=== PATIENT | male | born 1990 | race Caucasian/White ===

== ENCOUNTER 2020-02-01 19:03 | Emergency (ER) | payer MEDICAID ==
[~2020-02-01] VITALS: Ht 182.9 cm; Wt 95.5 kg
[2020-02-01] MEDS ORDERED: ADACEL/BOOSTRIX VACCINE (DIPHTH/PERTUSS/ACELL/TETANUS)0.5ML SYR (90715) IM ONE (19:30)
[2020-02-01 19:44] LABS: HEMATOCRIT 55.9 % (42.0-52.0); MEAN CORPUSCULAR HEMOGLOBIN 31.1 pg (27.0-33.0); MEAN CORPUSCULAR HGB CONC 34.7 g/dl (32.0-36.5); MEAN CORPUSCULAR VOLUME 89.6 fl (80.0-96.0); PLATELET COUNT, AUTOMATED 386 10^3/uL (150-450); RED BLOOD COUNT 6.24 10^6/uL (4.30-6.10); WHITE BLOOD COUNT 16.6 10^3/uL (4.0-10.0)
[2020-02-01] MEDS ORDERED: ISOVUE-370 76% 100ML VIAL (Q9967) As Ordered ONE (19:46)
[2020-02-01 19:47] LABS: HEMOGLOBIN 19.4 g/dl (13.5-17.5)
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
[2020-02-01 20:18] LABS: ALBUMIN 4.2 GM/DL (3.2-5.2); BILIRUBIN,DIRECT 0.2 MG/DL (0.0-0.2); BILIRUBIN,TOTAL 0.5 MG/DL (0.2-1.0)
[2020-02-01] MEDS ORDERED: DERMABOND TOPICAL SKIN ADHESIVE TOP ONE (21:15)
[2020-02-01] MEDS ORDERED: KETOROLAC 30 MG/ML VIAL (J1885) IV ONE (21:15)
[2020-02-01 22:54] VITALS: BP 110/67
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
== END 2020-02-01 22:56 | disposition home or self-care (01) ==
LOC: EDBD 19:03 → M ED 19:03
DX: S01.01XA Laceration without foreign body of scalp, initial encounter (principal); S01.81XA Laceration without foreign body of other part of head, initial encounter; S20.20XA Contusion of thorax, unspecified, initial encounter; Y08.02XA Assault by strike by baseball bat, initial encounter; Y92.89 Other specified places as the place of occurrence of the external cause; Z88.0 Allergy status to penicillin
CPT/HCPCS: 12013; 70450; 71260; 72125; 73090; 74177; 80047; 80076; 85027; 86850; 86900; 86901; 90471; 90715; 96372; 99291; J1885; Q9967

== ENCOUNTER 2021-01-01 12:17 | Emergency (ER) | payer OTHER ==
[~2021-01-01] VITALS: Ht 182.9 cm; Wt 107.8 kg
--- OUTSIDE RECORDS SUMMARY | 2021-01-01 13:01 | CCD ---
Author Author [facility] Organization [facility] Address Unknown Phone Unavailable Care Team Providers Care Python Developer Name Role Phone Martha Freire Unavailable Unavailable NICO, DOROTHY PA Unavailable Unavailable NICO, DOROTYH PA Unavailable Unavailable NICO, DOROTHY PA Unavailable Unavailable NICO, DOROTHY PA Unavailable Unavailable NICO, DOROTHY PA Unavailable Unavailable NICO, DOROTHY PA Unavailable Unavailable NICO, DOROTHY PA Unavailable Unavailable NICO, DOROTHY PA Unavailable Unavailable NICO, DOROTHY PA Unavailable Unavailable NICO, DOROTHY PA Unavailable Unavailable NICO, DOROTHY PA Unavailable Unavailable NICO, DOROTHY PA Unavailable Unavailable NICO, DOROTHY PA Unavailable Unavailable NICO, DOROTHY PA Unavailable Unavailable NICO, DOROTHY PA Unavailable Unavailable NICO, DOROTHY PA Unavailable Unavailable NICO, DOROTHY PA Unavailable Unavailable NICO, DOROTHY PA Unavailable Unavailable NICO, DOROTHY PA Unavailable Unavailable NICO, DOROTHY PA Unavailable Unavailable NICO, DOROTHY PA Unavailable Unavailable NICO, DOROTHY PA Unavailable Unavailable NICO, DOROTHY PA Unavailable Unavailable NICO, DOROTHY PA Unavailable Unavailable NICO, DOROTHY PA Unavailable Unavailable NICO, DOROTHY PA Unavailable Unavailable NICO, DOROTHY PA Unavailable Unavailable NICO, DOROTHY PA Unavailable Unavailable NICO, DOROTHY PA Unavailable Unavailable NICO, DOROTHY PA Unavailable Unavailable NICO, DOROTHY PA Unavailable Unavailable NICO, DOROTHY PA Unavailable Unavailable NICO, DOROTHY PA Unavailable Unavailable NICO, DOROTHY PA Unavailable Unavailable NICO, DOROTHY PA Unavailable Unavailable NICO, DOROTHY PA Unavailable Unavailable NICO, DOROTHY PA Unavailable Unavailable NICO, DOROTHY PA Unavailable Unavailable Re-disclosure Warning The records that you are about to access may contain information from federally-assisted alcohol or drug abuse programs. If such information is present, then the following federally mandated warning applies: This information has been disclosed to you from records protected by federal confidentiality rules (42 CFR part 2). The federal rules prohibit you from making any further disclosure of this information unless further disclosure is expressly permitted by the written consent of the person to whom it pertains or as otherwise permitted by 42 CFR part 2. A general authorization for the release of medical or other information is NOT sufficient for this purpose. The Federal rules restrict any use of the information to criminally investigate or prosecute any alcohol or drug abuse patient.The records that you are about to access may contain highly sensitive health information, the redisclosure of which is protected by Article 27-F of the [facility] Public Health law. If you continue you may have access to information: Regarding HIV / AIDS; Provided by facilities licensed or operated by the [facility] Office of Mental Health; or Provided by the [facility] Office for People With Developmental Disabilities. If such information is present, then the following [facility] mandated warning applies: This information has been disclosed to you from confidential records which are protected by state law. State law prohibits you from making any further disclosure of this information without the specific written consent of the person to whom it pertains, or as otherwise permitted by law. Any unauthorized further disclosure in violation of state law may result in a fine or prison sentence or both. A general authorization for the release of medical or other information is NOT sufficient authorization for further disc losure. Allergies and Adverse Reactions Type Description Substance Reaction Status Data Source(s ) Allergy to substance Allergy to substance Penicillin antibiotic produ ct [facility] ([facility] [employer]) Family History Family Member Name Family Member Gender Family Member Status Date o f Status Description Data Source(s) Unknown Unknown Problem [facility] ([facility]) Encounters Encounter Providers Location Date Indications Data Source(s ) Unlisted evaluation and management service Performer: Rachel Flores ers 02/29/2020 04:39:00 PM EDT - 03/16/2020 01:13:00 PM EDT [facility] ([facility] [employer]) Outpatient 02/29/2020 05:30:00 AM EDT [facility] Unlisted evaluation and management service Performer: Rachel Flores ers 02/26/2020 03:47:00 PM EDT - 02/29/2020 04:38:00 PM EDT [facility] ([facility] [employer]) Unlisted evaluation and management service Performer: Rachel Flores ers 02/21/2020 11:29:00 PM EDT - 03/25/2020 12:38:00 AM EDT [facility] ([facility] [employer]) Unlisted evaluation and management service 05/2020 09:45:00 PM EDT [facility] ([facility] [employer] [facility]) Outpatient Attender: DOROTHY martinez 02/16/2020 04:40:00 PM EDT [facility] ([facility] Insurance Providers Payer name Policy type / Coverage type Policy ID Covered constitution party ID Covered constitution party's relationship to manriquez Policy Manriquez Plan Information MARIAH [id number] SP [id number] [place] [id number] S [id number] MEDICAID M [id number] MEDICAID [id number] SP [id number] SELF PAY ONLY [id number] SP [id number] SELF PAY UNAVAILABLE UNAVAILA BLE O UNAVAILABLE UNAVAILA BLE [place] 302/[id number] SP [id number] [place] [id number] [id number] Results ID Date Data Source [id number] 03/06/2020 04:00:00 AM EDT [facility] ([facility]) Name Value Range Interpretation Code Description Data Penny rce(s) Supporting Document(s) UREA NITROGEN (BUN) 24.0 mg/dL [facility] ([facility] [employer]) eGFR NON-AFR. GUYANESE 102.0 mL/min/1.73m2 [facility] ([facility] [employer]) Creatinine [Interpretation] in Urine 0.99 mg/dL [facility] ([facility]) Glucose [Mass/volume] in Urine collected for unspecified duratio n 95.0 mg/dL [facility] ([facility]) eGFR 118.0 mL/min/1.73m2 [facility] Potassium [Mass/volume] in Blood 5.0 mmol/L [facility]) Sodium [Moles/volume] in Serum, Plasma or Blood 143.0 mmol/L [facility]) BUN/CREATININE RATIO NOT APPLICABLE [facility] [place] ([facility]) PROTEIN, TOTAL 7.1 g/dL [facility]) Chloride [Moles/volume] in Serum, Plasma or Blood 104.0 mmol/L [facility]) Carbon dioxide [VFr/PPres] in Gas delivery system 28.0 mmol/L [facility]) Calcium [Moles/volume] in Urine collected for unspecified durati on 10.0 mg/dL [facility]) ALBUMIN/GLOBULIN RATIO 2.0 (calc) [facility]SV[facility] ([facility]) Microalbumin [Mass/time] in Urine collected for unspecified dura tion 4.7 g/dL [facility] Globulin [Mass/time] in 24 hour Urine 2.4 g/dL (calc) [facility]) ALT 34.0 U/L [facility] Alkaline phosphatase [Enzymatic activity/volume] in Se rum, Plasma or Blood 61.0 U/L [facility]) AST 18.0 U/L [facility] ) BILIRUBIN, TOTAL 0.3 mg/dL [facility]) RED BLOOD CELL COUNT 5.09 Million/uL [facility] SM[facility] ([facility]) Hemoglobin [Mass/volume] in Mixed venous blood by Oximetry 15.7 g/dL [facility]) Hematocrit [Pure volume fraction] of Blood by Automated count 45.5 % [facility] ([facility]) Structure of plantar digital artery (body structure) 10.0 Thousand/uL [facility] ([facility]) RDW 12.5 % [facility] ([facility] ) MCH 30.8 pg [facility] ([facility] ) MCHC 34.5 g/dL [facility] ([facility]) MCV 89.4 fL [facility] ([facility]) PLATELET COUNT 341.0 Thousand/uL [facility] T ([facility]) MPV 9.6 fL [facility] ([facility]) ABSOLUTE NEUTROPHILS 6240.0 cells/uL [facility] ([facility]) ABSOLUTE PROMYELOCYTES DNR [facility] ([facility]) ABSOLUTE MYELOCYTES DNR [facility] ( [facility]) ABSOLUTE METAMYELOCYTES DNR NETSMA RT ([facility]) ABSOLUTE BAND NEUTROPHILS DNR [facility] M[facility] ([facility]) ABSOLUTE BASOPHILS 40.0 cells/uL [facility] ([facility]) ABSOLUTE MONOCYTES 860.0 cells/uL [facility] ([facility]) ABSOLUTE EOSINOPHILS 190.0 cells/uL [facility] ([facility]) ABSOLUTE LYMPHOCYTES 2670.0 cells/uL [facility] ([facility]) ABSOLUTE NUCLEATED RBC DNR [facility] ([facility]) BAND NEUTROPHILS DNR [facility] ([facility]) Neutrophils [#] in Body fluid by Manual count 62.4 % [facility] ([facility]) ABSOLUTE BLASTS DNR [facility]) Myelocytes [#] in Body fluid by Manual count DNR [facility] ([facility]) Lymphocytes [#] in Body fluid by Manual count 26.7 % [facility] ([facility]) Metamyelocytes [#] in Body fluid by Manual count DNR [facility] ([facility]) Promyelocytes [#] in Body fluid by Manual count DNR [facility] ([facility]) Monocytes [#/volume] in Cord blood 8.6 % [facility] ([facility]) Eosinophils [#] in Body fluid by Manual count 1.9 % [facility] ([facility]) REACTIVE LYMPHOCYTES DNR [facility] ([facility]) NUCLEATED RBC DNR [facility] ([facility]) Basophils [#] in Body fluid by Manual count 0.4 % [facility] ([facility]) Blasts [#] in Body fluid by Manual count DNR [facility] ([facility]) COMMENT(S) DNR [facility]) RPR (DX) W/REFL TITER AND CONFIRMATORY TESTING NON-REACTIVE [facility] ([facility]) ID Date Data Source [id number] 03/06/2020 04:00:00 AM EDT [facility] ([facility]) Name Value Range Interpretation Code Description Data Penny rce(s) Supporting Document(s) Urea nitrogen [Mass/volume] in Serum or Plasma 24.0 mg/dL [facility] ([facility]) Glucose [Mass/volume] in Serum or Plasma 95.0 mg/dL [facility] ([facility]) Glomerular filtration rate/1.73 sq M.pre dicted [Volume Rate/Area] in Serum, Plasma or Blood by Creatinine-based formula (MDRD) 102.0 mL/min/1.73m2 [facility] ([facility]) Creatinine [Mass/volume] in Serum or Plasma 0.99 mg/dL [facility] ([facility]) Potassium [Moles/volume] in Serum or Plasma 5.0 mmol/L [facility] ([facility]) Sodium [Moles/volume] in Serum or Plasma 143.0 mmol/L [facility] ([facility]) Urea nitrogen/Creatinine [Mass Ratio] in Serum or Plasma NOT APPLICAB LE [facility] ([facility]) Glomerular filtration rate/1.73 sq M pre dicted among blacks [Volume Rate/Area] in Serum or Plasma by Creatinine-based formula (MDRD) 118.0 mL/min/1.73m2 [facility] ([facility]) Chloride [Moles/volume] in Serum or Plasma 104.0 mmol/L [facility] ([facility]) Calcium [Mass/volume] in Serum or Plasma 10.0 mg/dL [facility] ([facility]) Carbon dioxide, total [Moles/volume] in Serum or Plasma 28.0 mmol/L [facility] ([facility]) Albumin/Globulin [Mass Ratio] in Serum or Plasma 2.0 (calc) [facility] ([facility]) Protein [Mass/volume] in Serum or Plasma 7.1 g/dL [facility] ([facility]) Globulin [Mass/volume] in Serum by calculation 2.4 g/dL (calc) [facility] ([facility]) Albumin [Mass/volume] in Serum or Plasma 4.7 g/dL [facility] ([facility]) Aspartate aminotransferase [Enzymatic activity/volume] in Serum or Plasma 18.0 U/L [facility] ([facility]) Alanine aminotransferase [Enzymatic activity/volume] i n Serum or Plasma 34.0 U/L [facility] ([facility]) Alkaline phosphatase [Enzymatic activity/volume] in Serum or Tala sma 61.0 U/L [facility] ([facility]) Bilirubin.total [Mass/volume] in Serum or Plasma 0.3 mg/dL [facility] ([facility]) Erythrocytes [#/volume] in Blood by Automated count 5.09 Million/uL [facility] ([facility]) Leukocytes [#/volume] in Blood by Automated count 10.0 Thousand/uL [facility] ([facility]) Hemoglobin [Mass/volume] in Blood 15.7 g/dL [facility] ([facility]) Erythrocyte mean corpuscular volume [Entitic volume] by Auto mated count 89.4 fL [facility] ([facility]) Erythrocyte mean corpuscular hemoglobin [Entitic mass] by Automated count 30.8 pg [facility] ([facility]) Hematocrit [Volume Fraction] of Blood by Automated count 45.5 % [facility] ([facility]) Erythrocyte mean corpuscular hemoglobin concentration [Mass/volume] by Automated count 34.5 g/dL [facility] ([facility]) Platelets [#/volume] in Blood by Automated count 341.0 Thousand/uL [facility] ([facility]) Neutrophils [#/volume] in Blood by Automated count 6240.0 cells/uL [facility] ([facility]) Erythrocyte distribution width [Ratio] by Automated count 12.5 % [facility] ([facility]) Platelet mean volume [Entitic volume] in Blood by Briceker 9.6 fL [facility] ([facility]) Myelocytes [#/volume] in Blood DNR [facility] ([facility]) Promyelocytes [#/volume] in Blood DNR [facility] ([facility]) Band form neutrophils [#/volume] in Blood DNR [facility] ([facility]) Metamyelocytes [#/volume] in Blood DNR [facility] ([facility]) Lymphocytes [#/volume] in Blood by Automated count 2670.0 cells/uL [facility] ([facility]) Monocytes [#/volume] in Blood by Automated count 860.0 cells/uL [facility] ([facility]) Eosinophils [#/volume] in Blood by Automated count 190.0 cells/uL [facility] ([facility]) Neutrophils/100 leukocytes in Blood by Automated count 62.4 % [facility] ([facility]) Blasts [#/volume] in Blood DNR [facility] ([facility]) Nucleated erythrocytes [#/volume] in Blood DNR [facility] ([facility]) Basophils [#/volume] in Blood by Automated count 40.0 cells/uL [facility] ([facility]) Metamyelocytes/100 leukocytes in Blood by Manual count DNR [facility] ([facility]) Myelocytes/100 leukocytes in Blood by Manual count DNR [facility] ([facility]) Band form neutrophils/100 leukocytes in Blood by Manual count DNR [facility] ([facility]) Promyelocytes/100 leukocytes in Blood by Manual count DNR [facility] ([facility]) Eosinophils/100 leukocytes in Blood by Automated count 1.9 % [facility] ([facility]) Variant lymphocytes/100 leukocytes in Blood DNR [facility] ([facility]) Lymphocytes/100 leukocytes in Blood by Automated count 26.7 % [facility] ([facility]) Monocytes/100 leukocytes in Blood by Automated count 8.6 % [facility] ([facility]) Blasts/100 leukocytes in Blood by Manual count DNR [facility] ([facility]) Service comment DNR [facility]) Basophils/100 leukocytes in Blood by Automated count 0.4 % [facility] ([facility]) Nucleated erythrocytes/100 leukocytes [Ratio] in Blood DNR [facility] ([facility]) Reagin Ab [Presence] in Serum by RPR NON-REACTIVE [facility] ([facility]) ID Date Data Source [id number] 03/08/2020 10:18:00 AM EDT [facility] Received: 03/08/2020 at 02:27:00 QPT : [facility] [address], [address] [place] [address], [phone], Jj Verma MD Received: 03/08/2020 at 02:27:00 QPT : [facility] [address], [address] [place] [address], [phone], Jj Verma MD Received: 03/08/2020 at 02:27:00 QPT : [facility] [address], [address] [place] [address], [phone], Jj Verma MD Name Value Range Interpretation Code Description Data Penny rce(s) Supporting Document(s) Glucose [Mass/volume] in Serum or Plasma 95 mg/dL 65-99 Normal (applies to non- numeric results) [facility] Fasting reference interval Urea nitrogen [Mass/volume] in Serum or Plasma 24 mg/dL 7 -25 Normal (applies to non-numeric results) [facility] Creatinine [Mass/volume] in Serum or Plasma 0.99 mg/dL 0.60 -1.35 Normal (applies to non-numeric results) [facility] Glomerular filtration rate/1.73 sq M.pre dicted [Volume Rate/Area] in Serum, Plasma or Blood by Creatinine-based formula (MDRD) 102 mL/min/1.73m2 > OR = 60 Normal (applies to non-numeric results) [facility] Glomerular filtration rate/1.73 sq M pre dicted among blacks [Volume Rate/Area] in Serum or Plasma by Creatinine-based formula (MDRD) 118 mL/min/1.73m2 > OR = 60 Normal (applies to non-numeric results) [facility] Urea nitrogen/Creatinine [Mass Ratio] in Serum or Plasma NOT APPLICABLE (calc) 6-22 [facility] Sodium [Moles/volume] in Serum or Plasma 143 mmol/L 135-146 Normal (applies to non-numeric results) [facility] Potassium [Moles/volume] in Serum or Plasma 5.0 mmol/L 3.5- 5.3 Normal (applies to non-numeric results) [facility] Chloride [Moles/volume] in Serum or Plasma 104 mmol/L 98-11 0 Normal (applies to non-numeric results) [facility] Carbon dioxide, total [Moles/volume] in Serum or Plasma 28 mmol/ L 20-32 Normal (applies to non-numeric results) [facility] Calcium [Mass/volume] in Serum or Plasma 10.0 mg/dL 8.6-10. 3 Normal (applies to non-numeric results) [facility] Protein [Mass/volume] in Serum or Plasma 7.1 g/dL 6.1-8.1 Normal (applies to non-numeric results) [facility] Albumin [Mass/volume] in Serum or Plasma 4.7 g/dL 3.6-5.1 Normal (applies to non-numeric results) [facility] Globulin [Mass/volume] in Serum by calculation 2.4 g/dL (calc) 1 .9-3.7 Normal (applies to non-numeric results) [facility] Albumin/Globulin [Mass Ratio] in Serum or Plasma 2.0 (calc) 1.0-2.5 Normal (applies to non-numeric results) [facility] Bilirubin.total [Mass/volume] in Serum or Plasma 0.3 mg/dL 0.2-1.2 Normal (applies to non-numeric results) [facility] Alkaline phosphatase [Enzymatic activity/volume] in Serum or Plasma 61 U/L 36-130 Normal (applies to non-numeric results) [facility] Aspartate aminotransferase [Enzymatic activity/volume] in Serum or Plasma 18 U/L 10-40 Normal (applies to non-numeric results) [facility] Alanine aminotransferase [Enzymatic activity/volume] in Seru m or Plasma 34 U/L 9-46 Normal (applies to non-numeric results) [facility] ID Date Data Source [id number] 03/08/2020 10:18:00 AM EDT [facility] Received: 03/08/2020 at 02:27:00 QPT [facility], [address] [place] [address], [phone], Jj Verma MD Received: 03/08/2020 at 02:27:00 QPT [facility], [address] [place] [address], [phone], Jj Verma MD Received: 03/08/2020 at 02:27:00 QPT : [facility], [address] [place] [address], [phone], Jj Verma MD Name Value Range Interpretation Code Description Data Penny rce(s) Supporting Document(s) Leukocytes [#/volume] in Blood by Automated count 10.0 Thousand/ uL 3.8-10.8 Normal (applies to non-numeric results) [facility] Erythrocytes [#/volume] in Blood by Automated count 5.09 Million /uL 4.20-5.80 Normal (applies to non-numeric results) [facility] Hemoglobin [Mass/volume] in Blood 15.7 g/dL 13.2-17.1 Normal (applies to non- numeric results) [facility] Hematocrit [Volume Fraction] of Blood by Automated count 45.5 % 38.5-50.0 Normal (applies to non-numeric results) [facility] Erythrocyte mean corpuscular volume [Entitic volume] by Auto mated count 89.4 fL 80.0-100.0 Normal (applies to non-numeric results) [facility] Erythrocyte mean corpuscular hemoglobin [Entitic mass] by Automated count 30.8 pg 27.0-33.0 Normal (applies to non-numeric results) [facility] Erythrocyte mean corpuscular hemoglobin concentration [Mass/volume] by Automated count 34.5 g/dL 32.0-36.0 Normal (applies to non-numeric results) [facility] Erythrocyte distribution width [Ratio] by Automated count 12.5 % 11.0-15.0 Normal (applies to non-numeric results) [facility] Platelets [#/volume] in Blood by Automated count 341 Thousand/uL 140-400 Normal (applies to non-numeric results) [facility] Platelet mean volume [Entitic volume] in Blood by Kel-Lukas 9.6 fL 7.5-12.5 Normal (applies to non-numeric results) [facility] Neutrophils [#/volume] in Blood by Automated count 6240 cells/uL [id number] Normal (applies to non-numeric results) [facility] Lymphocytes [#/volume] in Blood by Automated count 2670 cells/uL 850-3900 Normal (applies to non-numeric results) [facility] Monocytes [#/volume] in Blood by Automated count 860 cells/uL 200-950 Normal (applies to non-numeric results) [facility] Eosinophils [#/volume] in Blood by Automated count 190 cells/uL 15-500 Normal (applies to non-numeric results) [facility] Basophils [#/volume] in Blood by Automated count 40 cells/uL 0-200 Normal (applies to non-numeric results) [facility] Neutrophils/100 leukocytes in Blood by Automated count 62.4 % 38-80 Normal (applies to non-numeric results) [facility] Lymphocytes/100 leukocytes in Blood by Automated count 26.7 % 15-49 Normal (applies to non-numeric results) [facility] Monocytes/100 leukocytes in Blood by Automated count 8.6 % 0-13 Normal (applies to non-numeric results) [facility] Eosinophils/100 leukocytes in Blood by Automated count 1.9 % 0-8 Normal (applies to non-numeric results) [facility] Basophils/100 leukocytes in Blood by Automated count 0.4 % 0-2 Normal (applies to non-numeric results) [facility] ID Date Data Source [id number] 03/08/2020 10:18:00 AM EDT [facility] Received: 03/08/2020 at 02:27:00 QPT : [facility], [address], [address] [place], [phone], Jj Verma MD Received: 03/08/2020 at 02:27:00 QPT : [facility], [address], [address] [place], [phone], Jj Verma MD Received: 03/08/2020 at 02:27:00 QPT : [facility], [address], [address] [place], [phone], Jj Verma MD Name Value Range Interpretation Code Description Data Penny rce(s) Supporting Document(s) Reagin Ab [Presence] in Serum by RPR NON-REACTIVE NON-REACTIV E Normal (applies to non-numeric results) [facility] ID Date Data Source [id number] 02/21/2020 04:00:00 AM EDT [facility] ([facility]) Name Value Range Interpretation Code Description Data Penny rce(s) Supporting Document(s) Glucose [Mass/volume] in Serum or Plasma 93.0 mg/dL [facility] Creatinine [Mass/volume] in Serum or Plasma 0.97 mg/dL [facility] ([facility]) Glomerular filtration rate/1.73 sq M pre dicted among blacks [Volume Rate/Area] in Serum or Plasma by Creatinine-based formula (MDRD) 121.0 mL/min/1.73m2 [facility] ([facility] [employer] [facility]) Urea nitrogen [Mass/volume] in Serum or Plasma 14.0 mg/dL [facility] ([facility] [employer] [facility]) Glomerular filtration rate/1.73 sq M.pre dicted [Volume Rate/Area] in Serum, Plasma or Blood by Creatinine-based formula (MDRD) 104.0 mL/min/1.73m2 [facility] ([facility] [employer] [facility]) Sodium [Moles/volume] in Serum or Plasma 140.0 mmol/L [facility] ([facility] [employer] [facility]) Urea nitrogen/Creatinine [Mass Ratio] in Serum or Plasma NOT APPLICAB LE [facility] ([facility]) Potassium [Moles/volume] in Serum or Plasma 4.2 mmol/L [facility] ([facility]) Protein [Mass/volume] in Serum or Plasma 6.9 g/dL [facility] ([facility]) Carbon dioxide, total [Moles/volume] in Serum or Plasma 20.0 mmol/L [facility] ([facility]) Calcium [Mass/volume] in Serum or Plasma 9.1 mg/dL [facility] ([facility]) Chloride [Moles/volume] in Serum or Plasma 107.0 mmol/L [facility] ([facility]) Bilirubin.total [Mass/volume] in Serum or Plasma 0.4 mg/dL [facility] ([facility]) Albumin [Mass/volume] in Serum or Plasma 4.5 g/dL [facility] ([facility]) Globulin [Mass/volume] in Serum by calculation 2.4 g/dL (calc) [facility] ([facility]) Albumin/Globulin [Mass Ratio] in Serum or Plasma 1.9 (calc) NETSMART ([facility]) Aspartate aminotransferase [Enzymatic activity/volume] in Serum or Plasma 15.0 U/L NETSMART ([facility]) Alkaline phosphatase [Enzymatic activity/volume] in Serum or Tala sma 72.0 U/L NETSMART ([facility]) Alanine aminotransferase [Enzymatic activity/volume] i n Serum or Plasma 21.0 U/L NETSMART ([facility]) Color of Urine YELLOW NETSMART ([facility]) Appearance of Urine CLEAR NETSMART ( [facility]) Specific gravity of Urine by Test strip 1.026 NETSMART ([facility]) pH of Urine by Test strip 7.0 NETS MART ([facility]) Ketones [Presence] in Urine by Test strip NEGATIVE NETSMART ([facility]) Hemoglobin [Presence] in Urine by Test strip NEGATIVE NETSMART ([facility]) Glucose [Presence] in Urine by Test strip NEGATIVE NETSMART ([facility]) Bilirubin.total [Presence] in Urine by Test strip NEGATIVE NETSMART ([facility]) Protein [Presence] in Urine by Test strip NEGATIVE NETSMART ([facility]) Nitrite [Presence] in Urine by Test strip NEGATIVE NETSMART ([facility]) Leukocyte esterase [Presence] in Urine by Test strip NEGATIVE NETSMART ([facility]) Leukocytes [#/area] in Urine sediment by Microscopy high power field 0-5 NETSMART ([facility]) Transitional cells [#/area] in Urine sediment by Micro scopy high power field DNR NETSMART ([facility]) Epithelial cells.squamous [#/area] in Ur ine sediment by Microscopy high power field NONE SEEN NETSMART ([facility]) Epithelial cells.renal [#/area] in Urine sediment by Microscopy high power field DNR NETSMART ([facility]) Erythrocytes [#/area] in Urine sediment by Microscopy high power fi eld 0-2 NETSMART ([facility]) Urate crystals [#/area] in Urine sediment by Microscopy high pow er field DNR NETSMART ([facility]) Bacteria [#/area] in Urine sediment by Microscopy high power fie ld NONE SEEN NETSMART ([facility]) Triple phosphate crystals [#/area] in Ur ine sediment by Microscopy high power field DNR NETSMART ([facility]) Calcium oxalate crystals [#/area] in Uri ne sediment by Microscopy high power field DNR NETSMART ([facility]) Amorphous sediment [Presence] in Urine sediment by Light microscopy D NR NETSMART ([facility]) Hyaline casts [#/area] in Urine sediment by Microscopy low power field NONE SEEN NETSMART ([facility]) Granular casts [#/area] in Urine sediment by Microscopy low power f ield DNR NETSMART ([facility]) Crystals [#/area] in Urine sediment by Microscopy high power field DN R NETSMART ([facility]) Service comment DNR [facility]SMART ([facility]) Yeast [#/area] in Urine sediment by Microscopy high power field DNR NETSMART ([facility]) Casts [#/area] in Urine sediment by Microscopy low power field DNR NETSMART ([facility]) Hemoglobin [Mass/volume] in Blood 15.8 g/dL NETSMART ([facility]) Hematocrit [Volume Fraction] of Blood by Automated count 45.0 % NETSMART ([facility]) Leukocytes [#/volume] in Blood by Automated count 8.8 Thousand/uL NETSMART ([facility]) Erythrocytes [#/volume] in Blood by Automated count 5.0 Million/uL NETSMART ([facility]) Erythrocyte distribution width [Ratio] by Automated count 13.0 % NETSMART ([facility]) Erythrocyte mean corpuscular hemoglobin [Entitic mass] by Automated count 31.6 pg NETSMART ([facility]) Erythrocyte mean corpuscular volume [Entitic volume] by Auto mated count 90.0 fL NETSMART ([facility]) Erythrocyte mean corpuscular hemoglobin concentration [Mass/volume] by Automated count 35.1 g/dL NETSMART ([facility]) Neutrophils [#/volume] in Blood by Automated count 5808.0 cells/uL NETSMART ([facility]) Platelet mean volume [Entitic volume] in Blood by Kel-Lukas 9.4 fL NETSMART ([facility]) Platelets [#/volume] in Blood by Automated count 339.0 Thousand/uL NETSMART ([facility]) Promyelocytes [#/volume] in Blood DNR NETSMART ([facility]) Myelocytes [#/volume] in Blood DNR NETSMART ([facility]) Metamyelocytes [#/volume] in Blood DNR NETSMART ([facility]) Band form neutrophils [#/volume] in Blood DNR NETSMART ([facility]) Lymphocytes [#/volume] in Blood by Automated count 2042.0 cells/uL NETSMART ([facility]) Monocytes [#/volume] in Blood by Automated count 678.0 cells/uL NETSMART ([facility]) Basophils [#/volume] in Blood by Automated count 26.0 cells/uL NETSMART ([facility]) Eosinophils [#/volume] in Blood by Automated count 246.0 cells/uL NETSMART ([facility]) Band form neutrophils/100 leukocytes in Blood by Manual count DNR NETSMART ([facility]) Neutrophils/100 leukocytes in Blood by Automated count 66.0 % NETSMART ([facility]) Blasts [#/volume] in Blood DNR NET SMART ([facility]) Nucleated erythrocytes [#/volume] in Blood DNR NETSMART ([facility]) Lymphocytes/100 leukocytes in Blood by Automated count 23.2 % NETSMART ([facility]) Myelocytes/100 leukocytes in Blood by Manual count DNR NETSMART ([facility]) Promyelocytes/100 leukocytes in Blood by Manual count DNR NETSMART ([facility]) Metamyelocytes/100 leukocytes in Blood by Manual count DNR NETSMART ([facility]) Eosinophils/100 leukocytes in Blood by Automated count 2.8 % NETSMART ([facility]) Variant lymphocytes/100 leukocytes in Blood DNR NETSMART ([facility]) Basophils/100 leukocytes in Blood by Automated count 0.3 % NETSMART ([facility]) Monocytes/100 leukocytes in Blood by Automated count 7.7 % NETSMART ([facility] [facility]) Service comment DNR NETSMART ([facility]) Nucleated erythrocytes/100 leukocytes [Ratio] in Blood DNR NETSMART ([facility]) Blasts/100 leukocytes in Blood by Manual count DNR NETSMART ([facility]) Hepatitis C virus Ab Signal/Cutoff in Serum or Plasma by Immunoassay 0.03 NETSMART ([facility]) Hepatitis C virus Ab [Presence] in Serum or Plasma by Immuno assay NON-REACTIVE NETSMART ([facility]) Reagin Ab [Presence] in Serum by RPR NETSMART ([facility]) ID Date Data Source [id number] 02/21/2020 04:00:00 AM EDT NETSMART ([employer]) Name Value Range Interpretation Code Description Data Penny rce(s) Supporting Document(s) Glucose [Mass/volume] in Urine collected for unspecified duratio n 93.0 mg/dL NETSMART ([employer]) UREA NITROGEN (BUN) 14.0 mg/dL NETSMART ([facility]) eGFR NON-AFR. GUYANESE 104.0 mL/min/1.73m2 NETSMART ([employer]) Creatinine [Interpretation] in Urine 0.97 mg/dL NETSMART ([facility]) eGFR 121.0 mL/min/1.73m2 NETSMART ([facility]) BUN/CREATININE RATIO NOT APPLICABLE NETS MART ([employer]) Sodium [Moles/volume] in Serum, Plasma or Blood 140.0 mmol/L NETSMART ([facility]) Chloride [Moles/volume] in Serum, Plasma or Blood 107.0 mmol/L NETSMART ([facility]) Carbon dioxide [VFr/PPres] in Gas delivery system 20.0 mmol/L NETSMART ([facility]) Potassium [Mass/volume] in Blood 4.2 mmol/L NETSMART ([facility]) PROTEIN, TOTAL 6.9 g/dL NETSMART ([facility]) Calcium [Moles/volume] in Urine collected for unspecified durati on 9.1 mg/dL NETSMART ([facility]) Microalbumin [Mass/time] in Urine collected for unspecified dura tion 4.5 g/dL NETSMART ([facility]) ALBUMIN/GLOBULIN RATIO 1.9 (calc) NETSMA RT ([facility]) Globulin [Mass/time] in 24 hour Urine 2.4 g/dL (calc) NETSMART ([facility]) AST 15.0 U/L [facility]) Alkaline phosphatase [Enzymatic activity/volume] in Se rum, Plasma or Blood 72.0 U/L NETSMART ([facility]) BILIRUBIN, TOTAL 0.4 mg/dL [facility]SMART ([facility]) ALT 21.0 U/L [facility]SMART ([facility]) Color of Peritoneal dialysis fluid YELLOW NETSMART ([facility]) Specific gravity of Pericardial fluid by Refractometry 1.026 NETSMART ([facility]) Appearance of Abdomen CLEAR NETSMART ([facility]) Bilirubin [Presence] in Peritoneal fluid NEGATIVE NETSMART ([facility]) pH of Lower respiratory specimen 7.0 NETSMART ([facility]) Glucose [Mass/volume] in Urine collected for unspecified duration N EGATIVE NETSMART ([facility]) Ketones [Presence] in Blood by Tablet NEGATIVE NETSMART ([facility]) Protein [Mass/volume] in Lower respiratory specimen NEGATIVE NETSMART ([facility]) Nitrite [Presence] in Urine by Test strip NEGATIVE NETSMART ([facility]) OCCULT BLOOD NEGATIVE [facility]) WBC 0-5 [facility]SMART ([facility] Leukocyte esterase [Presence] in Body fluid by Automated test st rip NEGATIVE NETSMART ([facility]) RBC 0-2 NETSMART ([facility] ) SQUAMOUS EPITHELIAL CELLS NONE SEEN NETS MART ([facility]) TRANSITIONAL EPITHELIAL CELLS DNR NETSMART ([facility]) Bacteria [Presence] in Prostatic fluid by Light microscopy NONE SEEN NETSMART ([facility]) RENAL EPITHELIAL CELLS DNR NETSMAR T ([facility]) Calcium oxalate crystals [Presence] in Urine sediment by Light m icroscopy DNR NETSMART ([facility]) Amorphous sediment [Presence] in Urine sediment by Light microscopy D NR NETSMART ([facility]) Triple phosphate crystals [Presence] in Urine sediment by Li ght microscopy DNR NETSMART ([facility]) URIC ACID CRYSTALS DNR NETSMART ([facility]) Crystals [#/area] in Body fluid by Light microscopy DNR NETSMART ([facility]) HYALINE CAST NONE SEEN NETSMART ([facility]) GRANULAR CAST DNR NETSMART ([facility]) COMMENTS DNR [facility]SMART ([facility] ) Casts [#/area] in Urine sediment by Automated count DNR NETSMART ([facility]) Yeast [#/area] in Urine by Automated count DNR NETSMART ([facility]) Structure of plantar digital artery (body structure) 8.8 Thousand/uL NETSMART ([facility]) Nurse Note DNR NETSMART ([facility]) Hemoglobin [Mass/volume] in Mixed venous blood by Oximetry 15.8 g/dL NETSMART ([facility]) RED BLOOD CELL COUNT 5.0 Million/uL NETS MART ([facility]) MCV 90.0 fL [facility]SMART ([facility] Hematocrit [Pure volume fraction] of Blood by Automated count 45.0 % NETSMART ([facility]) MCH 31.6 pg [facility]SMART ([facility] MCHC 35.1 g/dL [facility] RDW 13.0 % [facility] PLATELET COUNT 339.0 Thousand/uL NETSMAR T ([facility]) MPV 9.4 fL [facility]SMART ([facility] ) ABSOLUTE NEUTROPHILS 5808.0 cells/uL NET SMART ([facility]) ABSOLUTE BAND NEUTROPHILS DNR NETS MART ([facility]) ABSOLUTE LYMPHOCYTES 2042.0 cells/uL NET SMART ([facility]) ABSOLUTE MYELOCYTES DNR NETSMART ( [facility]) ABSOLUTE PROMYELOCYTES [facility] ABSOLUTE METAMYELOCYTES DNR NETSMA RT ([facility]) ABSOLUTE BLASTS DNR NETSMART ([facility]) ABSOLUTE EOSINOPHILS 246.0 cells/uL NETS MART ([facility]) ABSOLUTE MONOCYTES 678.0 cells/uL NETSMA RT ([facility]) ABSOLUTE BASOPHILS 26.0 cells/uL NETSMAR T ([facility]) BAND NEUTROPHILS DNR [facility]) Neutrophils [#] in Body fluid by Manual count 66.0 % NETSMART ([facility]) ABSOLUTE NUCLEATED RBC DNR NETSMAR T ([facility]) Myelocytes [#] in Body fluid by Manual count DNR NETSMART ([facility]) Promyelocytes [#] in Body fluid by Manual count DNR NETSMART ([facility]) Lymphocytes [#] in Body fluid by Manual count 23.2 % NETSMART ([facility]) Metamyelocytes [#] in Body fluid by Manual count DNR NETSMART ([facility]) Basophils [#] in Body fluid by Manual count 0.3 % NETSMART ([facility]) REACTIVE LYMPHOCYTES DNR NETSMART ([facility]) Eosinophils [#] in Body fluid by Manual count 2.8 % NETSMART ([facility]) Monocytes [#/volume] in Cord blood 7.7 % NETSMART ([facility]) NUCLEATED RBC DNR NETSMART ([facility]) COMMENT(S) DNR [facility] ([facility]) Blasts [#] in Body fluid by Manual count DNR NETSMART ([facility]) SIGNAL TO CUT-OFF 0.03 [facility]) HEPATITIS C ANTIBODY NON-REACTIVE NETSMA RT ([facility]) RPR (DX) W/REFL TITER AND CONFIRMATORY TESTING NON-REACTIVE NETSMART ([facility]) ID Date Data Source [id number] 02/23/2020 09:04:00 AM EDT [facility] Received: 02/23/2020 at 02:34:00 QPT [facility], [address], [address] [place] [address], [phone], Jj Verma MD Received: 02/23/2020 at 02:34:00 QPT : [facility] [address], [address] [place] [address], [phone], Jj Verma MD Received: 02/23/2020 at 02:34:00 QPT : [facility], [address], [address] [place] [address], [phone], Jj Verma MD Received: 02/23/2020 at 02:34:00 QPT : [facility], [address], [address] [place], [address], Jj Verma MD Received: 02/23/2020 at 02:34:00 QPT : [facility], [address], [address] [place], [phone], Jj Verma MD Name Value Range Interpretation Code Description Data Penny rce(s) Supporting Document(s) Glucose [Mass/volume] in Serum or Plasma 93 mg/dL 65-99 Normal (applies to non- numeric results) [facility] Fasting reference interval Urea nitrogen [Mass/volume] in Serum or Plasma 14 mg/dL 7 -25 Normal (applies to non-numeric results) [facility] Creatinine [Mass/volume] in Serum or Plasma 0.97 mg/dL 0.60 -1.35 Normal (applies to non-numeric results) [facility] Glomerular filtration rate/1.73 sq M.pre dicted [Volume Rate/Area] in Serum, Plasma or Blood by Creatinine-based formula (MDRD) 104 mL/min/1.73m2 > OR = 60 Normal (applies to non-numeric results) [facility] Glomerular filtration rate/1.73 sq M pre dicted among blacks [Volume Rate/Area] in Serum or Plasma by Creatinine-based formula (MDRD) 121 mL/min/1.73m2 > OR = 60 Normal (applies to non-numeric results) [facility] Urea nitrogen/Creatinine [Mass Ratio] in Serum or Plasma NOT APPLICABLE (calc) 6-22 [facility] Sodium [Moles/volume] in Serum or Plasma 140 mmol/L 135-146 Normal (applies to non-numeric results) [facility] Potassium [Moles/volume] in Serum or Plasma 4.2 mmol/L 3.5- 5.3 Normal (applies to non-numeric results) [facility] Chloride [Moles/volume] in Serum or Plasma 107 mmol/L 98-11 0 Normal (applies to non-numeric results) [facility] Carbon dioxide, total [Moles/volume] in Serum or Plasma 20 mmol/ L 20-32 Normal (applies to non-numeric results) [facility] Calcium [Mass/volume] in Serum or Plasma 9.1 mg/dL 8.6-10. 3 Normal (applies to non-numeric results) [facility] Protein [Mass/volume] in Serum or Plasma 6.9 g/dL 6.1-8.1 Normal (applies to non-numeric results) [facility] Albumin [Mass/volume] in Serum or Plasma 4.5 g/dL 3.6-5.1 Normal (applies to non-numeric results) [facility] Globulin [Mass/volume] in Serum by calculation 2.4 g/dL (calc) 1 .9-3.7 Normal (applies to non-numeric results) [facility] Albumin/Globulin [Mass Ratio] in Serum or Plasma 1.9 (calc) 1.0-2.5 Normal (applies to non-numeric results) [facility] Bilirubin.total [Mass/volume] in Serum or Plasma 0.4 mg/dL 0.2-1.2 Normal (applies to non-numeric results) [facility] Alkaline phosphatase [Enzymatic activity/volume] in Serum or Plasma 72 U/L 36-130 Normal (applies to non-numeric results) [facility] Aspartate aminotransferase [Enzymatic activity/volume] in Serum or Plasma 15 U/L 10-40 Normal (applies to non-numeric results) [facility] Alanine aminotransferase [Enzymatic activity/volume] in Seru m or Plasma 21 U/L 9-46 Normal (applies to non-numeric results) [facility] ID Date Data Source [id number] 02/23/2020 09:04:00 AM EDT [facility] Received: 02/23/2020 at 02:34:00 QPT [facility], [address] [place] [address], [phone], Jj Verma MD Received: 02/23/2020 at 02:34:00 QPT : [facility] [address], [address] [place] [address], [phone], Jj Verma MD Received: 02/23/2020 at 02:34:00 QPT : [facility], [address] [place] [address], [phone] MD Received: 02/23/2020 at 02:34:00 QPT : [facility], [address] [place] [address], [phone], Jj Verma MD Received: 02/23/2020 at 02:34:00 QPT : [facility], [address], [address] [facility], [place], [phone], Jj Verma MD Name Value Range Interpretation Code Description Data Penny rce(s) Supporting Document(s) Color of Urine YELLOW YELLOW Normal (applies to non-numeric r esults) [facility] Appearance of Urine CLEAR CLEAR Normal (applies to non-nume ainsley results) [facility] Specific gravity of Urine by Test strip 1.026 1.001-1. 035 Normal (applies to non-numeric results) [facility] pH of Urine by Test strip 7.0 5.0-8.0 Normal (applies to non-numeric results) [facility] Glucose [Presence] in Urine by Test strip NEGATIVE NEGATI VE Normal (applies to non-numeric results) [facility] Bilirubin.total [Presence] in Urine by Test strip NEGATIVE NEGATIVE Normal (applies to non-numeric results) [facility] Ketones [Presence] in Urine by Test strip NEGATIVE NEGATI VE Normal (applies to non-numeric results) [facility] Hemoglobin [Presence] in Urine by Test strip NEGATIVE NEG ATIVE Normal (applies to non-numeric results) [facility] Protein [Presence] in Urine by Test strip NEGATIVE NEGATI VE Normal (applies to non-numeric results) [facility] Nitrite [Presence] in Urine by Test strip NEGATIVE NEGATI VE Normal (applies to non-numeric results) [facility] Leukocyte esterase [Presence] in Urine by Test strip NEGATIVE NEGATIVE Normal (applies to non-numeric results) [facility] Leukocytes [#/area] in Urine sediment by Microscopy high pow er field 0-5 /HPF < OR = 5 Normal (applies to non-numeric results) [facility] Erythrocytes [#/area] in Urine sediment by Microscopy high p ower field 0-2 /HPF < OR = 2 Normal (applies to non-numeric results) [facility] Epithelial cells.squamous [#/area] in Ur ine sediment by Microscopy high power field NONE SEEN /HPF < OR = 5 Normal (applies to non-numeric results) [facility] Bacteria [#/area] in Urine sediment by Microscopy high power field NONE SEEN /HPF NONE SEEN Normal (applies to non-numeric results) [facility] Hyaline casts [#/area] in Urine sediment by Microscopy low power field NONE SEEN /LPF NONE SEEN Normal (applies to non-numeric results) [facility] ID Date Data Source [id number] 02/23/2020 09:04:00 AM EDT [facility] Received: 02/23/2020 at 02:34:00 QPT : [facility], [address], [address] [place], [address], Jj Verma MD Received: 02/23/2020 at 02:34:00 QPT : [facility], [address], [address] [place], [address], Jj Verma MD Received: 02/23/2020 at 02:34:00 QPT : [facility], [address], [address] [place], [address], Jj Verma MD Received: 02/23/2020 at 02:34:00 QPT : [facility], [address], [address] [place], [phone], Jj Verma MD Received: 02/23/2020 at 02:34:00 QPT : [facility], [address], [address] [place], [address], Jj Verma MD Name Value Range Interpretation Code Description Data Penny rce(s) Supporting Document(s) Leukocytes [#/volume] in Blood by Automated count 8.8 Thousand/u L 3.8-10.8 Normal (applies to non-numeric results) [facility] Erythrocytes [#/volume] in Blood by Automated count 5.00 Million /uL 4.20-5.80 Normal (applies to non-numeric results) [facility] Hemoglobin [Mass/volume] in Blood 15.8 g/dL 13.2-17.1 Normal (applies to non- numeric results) [facility] Hematocrit [Volume Fraction] of Blood by Automated count 45.0 % 38.5-50.0 Normal (applies to non-numeric results) [facility] Erythrocyte mean corpuscular volume [Entitic volume] by Auto mated count 90.0 fL 80.0-100.0 Normal (applies to non-numeric results) [facility] Erythrocyte mean corpuscular hemoglobin [Entitic mass] by Automated count 31.6 pg 27.0-33.0 Normal (applies to non-numeric results) [facility] Erythrocyte mean corpuscular hemoglobin concentration [Mass/volume] by Automated count 35.1 g/dL 32.0-36.0 Normal (applies to non-numeric results) [facility] Erythrocyte distribution width [Ratio] by Automated count 13.0 % 11.0-15.0 Normal (applies to non-numeric results) [facility] Platelets [#/volume] in Blood by Automated count 339 Thousand/uL 140-400 Normal (applies to non-numeric results) [facility] Platelet mean volume [Entitic volume] in Blood by KelDeena 9.4 fL 7.5-12.5 Normal (applies to non-numeric results) [facility] Neutrophils [#/volume] in Blood by Automated count 5808 cells/uL 4877-0020 Normal (applies to non-numeric results) [facility] Lymphocytes [#/volume] in Blood by Automated count 2042 cells/uL 850-3900 Normal (applies to non-numeric results) [facility] Monocytes [#/volume] in Blood by Automated count 678 cells/uL 200-950 Normal (applies to non-numeric results) [facility] Eosinophils [#/volume] in Blood by Automated count 246 cells/uL 15-500 Normal (applies to non-numeric results) [facility] Basophils [#/volume] in Blood by Automated count 26 cells/uL 0-200 Normal (applies to non-numeric results) [facility] Neutrophils/100 leukocytes in Blood by Automated count 66 % 38-80 Normal (applies to non-numeric results) [facility] Lymphocytes/100 leukocytes in Blood by Automated count 23.2 % 15-49 Normal (applies to non-numeric results) [facility] Monocytes/100 leukocytes in Blood by Automated count 7.7 % 0-13 Normal (applies to non-numeric results) [facility] Eosinophils/100 leukocytes in Blood by Automated count 2.8 % 0-8 Normal (applies to non-numeric results) [facility] Basophils/100 leukocytes in Blood by Automated count 0.3 % 0-2 Normal (applies to non-numeric results) [facility] ID Date Data Source [id number] 02/23/2020 09:04:00 AM EDT [facility] Received: 02/23/2020 at 02:34:00 QPT : [facility], [address], [address] [place], [phone], Jj Verma MD Received: 02/23/2020 at 02:34:00 QPT : [facility], [address], [address] [place], [address], Jj Verma MD Received: 02/23/2020 at 02:34:00 QPT : [facility], [address], [address] [place], [phone] MD Received: 02/23/2020 at 02:34:00 QPT : [facility], [address], [address] [place], [phone], Jj Verma MD Received: 02/23/2020 at 02:34:00 QPT : [facility], [address], [address] [place], [phone], Jj Verma MD Name Value Range Interpretation Code Description Data Penny rce(s) Supporting Document(s) Hepatitis C virus Ab [Presence] in Serum or Plasma by Immuno assay NON-REACTIVE NON-REACTIVE Normal (applies to non-numeric results) [facility] Hepatitis C virus Ab Signal/Cutoff in Serum or Plasma by Imm unoassay 0.03 <1.00 Normal (applies to non-numeric results) [facility] HCV antibody was non-reactive. There is no laboratoryevidence of HCV infection.In most cases, no further action is required. However,if recent HCV exposure is suspected, a test for HCV RNA(test code 95783) is suggested.For additional information please refer [email or web address] Team [email or web address](This link is being provided for informational/educational purposes only.) ID Date Data Source [id number] 02/23/2020 09:04:[address] [facility] Received: 02/23/2020 at 02:34:00 QPT : [facility], [address], [address] [place], [phone] MD Received: 02/23/2020 at 02:34:00 QPT : [facility], [address], [address] [place], [address], Jj Verma MD Received: 02/23/2020 at 02:34:00 QPT : [facility] [facility], [address], [address] [place], [address], Jj Verma MD Received: 02/23/2020 at 02:34:00 QPT : [facility], [address], [address] [place], [address], Jj Verma MD Received: 02/23/2020 at 02:34:00 QPT : [facility], [address], [address] [place], [address], Jj Verma MD Name Value Range Interpretation Code Description Data Penny rce(s) Supporting Document(s) Reagin Ab [Presence] in Serum by RPR NON-REACTIVE NON-REACTIV E Normal (applies to non-numeric results) [facility] Procedure Social History Code Duration Value Status Description Data Source(s ) Smoking 02/21/2020 12:00:00 PM EDT Heavy cigarette smoker ([facility]) completed Heavy Tobacco Smoker NETSMART ([employer]) Vital Signs ID Date Data Source UNK Name Value Range Interpretation Code Description Data Source(s) Body temperature 36.3 OLESYA 36.3 OLESYA NETSMART ([facility]) Body temperature 97.3 [DEGF] 97.3 [DEGF] NETSMA RT ([facility]) Body temperature 36.1 OLESYA 36.1 OLESYA [facility]SMART ([facility]) Body temperature 96.9 [DEGF] 96.9 [DEGF] NETSMA RT ([facility]) Diastolic blood pressure 98.0 MM[HG] 98.0 MM[HG ] NETSMART ([facility]) Systolic blood pressure 145.0 MM[HG] 145.0 MM[H G] NETSMART ([facility]) Oxygen saturation in Arterial blood by Pulse oximetry 96.0 % 96.0 % NETSMART ([facility]) Respiratory rate 16.0 /MIN 16.0 /MIN NETSMART ([facility]) Heart rate 73.0 /MIN 73.0 /MIN [facility]SMART ([facility]) Body temperature 36.3 OLESYA 36.3 OLESYA NETSMART ([facility]) Body temperature 97.3 [DEGF] 97.3 [DEGF] NETSMA RT ([facility]) Diastolic blood pressure 80.0 MM[HG] 80.0 MM[HG ] NETSMART ([facility]) Systolic blood pressure 142.0 MM[HG] 142.0 MM[H G] NETSMART ([facility]) Oxygen saturation in Arterial blood by Pulse oximetry 98.0 % 98.0 % NETSMART ([facility]) Respiratory rate 20.0 /MIN 20.0 /MIN NETSMART ([facility]) Heart rate 95.0 /MIN 95.0 /MIN [facility] ([facility]) Body temperature 36.2 OLESYA 36.2 OLESYA NETSMART ([facility]) Body temperature 97.2 [DEGF] 97.2 [DEGF] NETSMA RT ([facility]) Diastolic blood pressure 66.0 MM[HG] 66.0 MM[HG ] NETSMART ([facility]) Systolic blood pressure 113.0 MM[HG] 113.0 MM[H G] NETSMART ([facility]) Respiratory rate 16.0 /MIN 16.0 /MIN NETSMART ([facility]) Heart rate 77.0 /MIN 77.0 /MIN [facility] ([facility]) Body temperature 35.8 OLESYA 35.8 OLESYA NETSMART ([facility]) Body temperature 96.4 [DEGF] 96.4 [DEGF] NETSMA RT ([facility]) Diastolic blood pressure 83.0 MM[HG] 83.0 MM[HG ] NETSMART ([facility]) Systolic blood pressure 127.0 MM[HG] 127.0 MM[H G] NETSMART ([facility]) Respiratory rate 18.0 /MIN 18.0 /MIN NETSMART ([facility]) Heart rate 100.0 /MIN 100.0 /MIN [facility] ([facility]) Diastolic blood pressure 83.0 MM[HG] 83.0 MM[HG ] NETSMART ([facility]) Systolic blood pressure 124.0 MM[HG] 124.0 MM[H G] NETSMART ([facility]) Respiratory rate 18.0 /MIN 18.0 /MIN NETSMART ([facility]) Heart rate 109.0 /MIN 109.0 /MIN [facility] ([facility]) Body temperature 36.3 OLESYA 36.3 OLESYA NETSMART ([facility]) Body temperature 97.3 [DEGF] 97.3 [DEGF] NETSMA RT ([facility]) Respiratory rate 16.0 /MIN 16.0 /MIN NETSMART ([facility]) Heart rate 87.0 /MIN 87.0 /MIN [facility] ([facility]) Body temperature 35.8 OLESYA 35.8 OLESYA NETSMART ([facility]) Body temperature 96.4 [DEGF] 96.4 [DEGF] NETSMA RT ([facility]) Diastolic blood pressure 75.0 MM[HG] 75.0 MM[HG ] NETSMART ([facility]) Systolic blood pressure 128.0 MM[HG] 128.0 MM[H G] NETSMART ([facility]) Diastolic blood pressure 90.0 MM[HG] 90.0 MM[HG ] NETSMART ([facility]) Systolic blood pressure 140.0 MM[HG] 140.0 MM[H G] NETSMART ([facility]) Respiratory rate 18.0 /MIN 18.0 /MIN NETSMART ([facility]) Heart rate 110.0 /MIN 110.0 /MIN [facility] ([facility]) Body temperature 36.5 OLESYA 36.5 OLESYA NETSMART ([facility]) Body temperature 97.7 [DEGF] 97.7 [DEGF] NETSMA RT ([facility]) Diastolic blood pressure 80.0 MM[HG] 80.0 MM[HG ] NETSMART ([facility]) Systolic blood pressure 126.0 MM[HG] 126.0 MM[H G] NETSMART ([facility]) Respiratory rate 16.0 /MIN 16.0 /MIN NETSMART ([facility]) Heart rate 116.0 /MIN 116.0 /MIN [facility] ([facility]) Body temperature 36.3 OLESYA 36.3 OLESYA NETSMART ([facility]) Body temperature 97.3 [DEGF] 97.3 [DEGF] NETSMA RT ([facility]) Diastolic blood pressure 68.0 MM[HG] 68.0 MM[HG ] NETSMART ([facility]) Systolic blood pressure 115.0 MM[HG] 115.0 MM[H G] NETSMART ([facility]) Respiratory rate 16.0 /MIN 16.0 /MIN NETSMART ([facility]) Heart rate 81.0 /MIN 81.0 /MIN [facility] ([facility]) Body temperature 35.8 OLESYA 35.8 OLESYA NETSMART ([facility]) Body temperature 96.5 [DEGF] 96.5 [DEGF] NETSMA RT ([facility]) Diastolic blood pressure 70.0 MM[HG] 70.0 MM[HG ] NETSMART ([facility]) Systolic blood pressure 109.0 MM[HG] 109.0 MM[H G] [facility]SMART ([facility]) Respiratory rate 18.0 /MIN 18.0 /MIN [facility]SMART ([facility]) Heart rate 108.0 /MIN 108.0 /MIN [facility] ([facility]) Body temperature 36.2 OLESYA 36.2 OLESYA NETSMART ([facility]) Body temperature 97.1 [DEGF] 97.1 [DEGF] NETSMA RT ([facility]) Diastolic blood pressure 75.0 MM[HG] 75.0 MM[HG ] [facility]SMART ([facility]) Systolic blood pressure 125.0 MM[HG] 125.0 MM[H G] NETSMART ([facility]) Respiratory rate 16.0 /MIN 16.0 /MIN NETSMART ([facility]) Heart rate 79.0 /MIN 79.0 /MIN [facility] ([facility]) Body temperature 35.9 OLESYA 35.9 OLESYA NETSMART ([facility]) Body temperature 96.7 [DEGF] 96.7 [DEGF] NETSMA RT ([facility]) Diastolic blood pressure 68.0 MM[HG] 68.0 MM[HG ] NETSMART ([facility]) Systolic blood pressure 108.0 MM[HG] 108.0 MM[H G] NETSMART ([facility]) Respiratory rate 16.0 /MIN 16.0 /MIN [facility]SMART ([facility]) Heart rate 74.0 /MIN 74.0 /MIN [facility] ([facility]) Diastolic blood pressure 71.0 MM[HG] 71.0 MM[HG ] NETSMART ([facility]) Systolic blood pressure 126.0 MM[HG] 126.0 MM[H G] NETSMART ([facility]) Respiratory rate 18.0 /MIN 18.0 /MIN [facility]SMART ([facility]) Heart rate 97.0 /MIN 97.0 /MIN [facility] ([facility]) Body temperature 36.3 OLESYA 36.3 OLESYA NETSMART ([facility]) Body temperature 97.4 [DEGF] 97.4 [DEGF] NETSMA RT ([facility]) Diastolic blood pressure 68.0 MM[HG] 68.0 MM[HG ] NETSMART ([facility]) Systolic blood pressure 123.0 MM[HG] 123.0 MM[H G] NETSMART ([facility]) Respiratory rate 16.0 /MIN 16.0 /MIN [facility]SMART ([facility]) Heart rate 82.0 /MIN 82.0 /MIN [facility] ([facility]) Body temperature 35.9 OLESYA 35.9 OLESYA NETSMART ([facility]) Body temperature 96.6 [DEGF] 96.6 [DEGF] NETSMA RT ([facility]) Diastolic blood pressure 68.0 MM[HG] 68.0 MM[HG ] NETSMART ([facility]) Systolic blood pressure 119.0 MM[HG] 119.0 MM[H G] [facility]SMART ([facility]) Respiratory rate 16.0 /MIN 16.0 /MIN [facility]SMART ([facility]) Heart rate 76.0 /MIN 76.0 /MIN [facility] ([facility]) Body temperature 36.2 OLESYA 36.2 OLESYA NETSMART ([facility]) Body temperature 97.1 [DEGF] 97.1 [DEGF] NETSMA RT ([facility]) Diastolic blood pressure 86.0 MM[HG] 86.0 MM[HG ] [facility]SMART ([facility]) Systolic blood pressure 132.0 MM[HG] 132.0 MM[H G] NETSMART ([facility]) Oxygen saturation in Arterial blood by Pulse oximetry 97.0 % 97.0 % [facility]SMART ([facility]) Respiratory rate 14.0 /MIN 14.0 /MIN [facility]SMART ([facility]) Heart rate 92.0 /MIN 92.0 /MIN [facility] ([facility]) Body temperature 36.5 OLESYA 36.5 OLESYA NETSMART ([facility]) Body temperature 97.7 [DEGF] 97.7 [DEGF] NETSMA RT ([facility]) Body mass index (BMI) [Ratio] 28.7 kg/m2 28.7 k g/m2 [facility] ([facility]) Body height 72 [in_i] 72 [in_i] [facility] ([facility]) 6'0" Body weight 212.00 [lb_av] 212.00 [lb_av] [facility] ([facility]) Body temperature 97.8 [degF] 97.8 [degF] [facility] ([facility]) Oxygen saturation in Arterial blood by Pulse oximetry 99 % 99 % [facility] ([facility]) Respiratory rate 16 /min 16 /min [facility] ( [facility]) Heart rate 86 /min 86 /min [facility] ([facility]) Diastolic blood pressure 84 mm[Hg] 84 mm[Hg] [facility] ([facility]) Systolic blood pressure 124 mm[Hg] 124 mm[Hg] [facility] ([facility], [facility])
[2021-01-01] MEDS ORDERED: KETOROLAC TROMETHAMINE 10 MG TAB PO ONE (13:15)
--- NOTE | 2021-01-01 14:23 | REP ---
INDICATION: l testicle swollen and painful. COMPARISON: None. TECHNIQUE: High-resolution bilateral scrotal sonography is performed. FINDINGS: There is no evidence of interest testicular mass lesion on either side. There are a few scattered microcalcifications in each testis. Not felt to be significant. Testicular Doppler flow is present. Resistive indices are 0.58 on the right and 0.51 on the left. There is no evidence to suggest torsion. Right testis measures 4.7 x 2.6 x 2.7 cm. Left testicular dimensions are 4.2 x 2.6 x 3.1 cm. There is a 5 5 mm right epididymal cyst. The left epididymis is hypervascular and heterogeneously somewhat thickened. There are inflammatory changes in the left spermatic cord as well. Findings are compatible with left epididymitis. IMPRESSION: Findings consistent with left-sided epididymitis. No intra testicular mass seen. Normal testicular Doppler flow. <Electronically signed by Jose Ledbetter > 01/01/21 [id number]
--- NOTE | 2021-01-01 14:36 | REP ---
INDICATION: inguinal hernia. COMPARISON: Comparison CT study 01 February 2020.. TECHNIQUE: Bilateral inguinal canal sonography. FINDINGS: Fat content is observed in the inguinal canals bilaterally. This may be fatty infiltration of the spermatic cords. There is no significant change with Valsalva. Inguinal canal is 27 mm in AP dimension on the right at rest and 29 with Valsalva. Left canal measures 21 and 22 mm at rest and with Valsalva respectively.. IMPRESSION: No definite inguinal hernia. Fat content is seen in the inguinal canals. This may be fatty infiltration of the spermatic cords. No mass or cyst is seen.. <Electronically signed by Jose Ledbetter > 01/01/21 [id number]
[2021-01-01 14:51] LABS: CHLAMYDIA DNA AMPLIFICATION POSITIVE (NEGATIVE); GC DNA AMPLIFICATION POSITIVE (NEGATIVE)
[2021-01-01] MEDS ORDERED: DOXYCYCLINE HYCLATE 100MG TABLET PO ONE (15:00)
[2021-01-01] MEDS ORDERED: cefTRIAXone 500MG VIAL (J0696 PER 250MG) IM ONE (15:00)
[2021-01-01] MEDS ORDERED: LIDOCAINE 1% SDV 5ML VIAL DILUENT ONE (15:00)
[2021-01-01] MEDS ORDERED: DOXY100C37 PO (15:01)
--- OUTSIDE RECORDS SUMMARY | 2021-01-01 15:23 | CCD ---
Author Author [facility] Organization [facility] Address Unknown Phone Unavailable Care Team Providers Care Needle Bar Molder Name Role Phone DOROTHY WALSH PA Unavailable Unavailable NICO, DOROTHY PA Unavailable [...] Unavailable Unavailable NICO, DOROTHY PA Unavailable Unavailable NicholasMartha Benedict Unavailable Unavailable Re-disclosure Warning The records that [...] is protected by Article 27-F of the [facility] Public Health law. If you continue you may have access to information: Regarding HIV / AIDS; Provided by facilities licensed or operated by the [facility] Office of Mental Health; or Provided by the [facility] Office for People With Developmental Disabilities. If such information is present, then the following [facility] mandated warning applies: This information has [...] law may result in a fine or intermediate sentence or both. A general authorization for the release of medical or other information is NOT sufficient authorization for further disc losure. Allergies and Adverse Reactions Type Description Substance Reaction Status Data Source(s ) Allergy to substance Allergy to substance Penicillin antibiotic produ ct NETSMART ([facility]) Family History Family Member Name Family Member Gender Family Member Status Date o f Status Description Data Source(s) Unknown Unknown Problem [facility] ([facility]) Encounters Encounter Providers Location Date Indications Data Source(s ) Unlisted evaluation and management service Performer: Benedict Ulrich carmen 02/29/2020 04:39:00 PM EDT - 03/16/2020 01:13:00 PM EDT NETSM[facility] ([facility]) Outpatient 02/29/2020 05:30:00 AM EDT [facility] Unlisted evaluation and management service Performer: Benedict Ulrich carmen 02/26/2020 03:47:00 PM EDT - 02/29/2020 04:38:00 PM EDT NETSMART ([facility]) Unlisted evaluation and management service Performer: Benedict Ulrich carmen 02/21/2020 11:29:00 PM EDT - 03/25/2020 12:38:00 AM EDT NETSMART ([facility]) Unlisted evaluation and management service 05/2020 09:45:00 PM EDT NETSMART ([facility]) Outpatient Attender: DOROTHY Deleon ry 02/16/2020 04:40:00 PM EDT [facility] Insurance Providers Payer name Policy type / Coverage type Policy ID Covered democrat ID Covered democrat's relationship to manriquez Policy Manriquez Plan Information MARIAH [id number] SP [id number] MARIAH CARE DE O [id number] S [id number] MEDICAID M [id number] MEDICAID [id number] SP [id number] SELF PAY ONLY [id number] SP [id number] SELF PAY UNAVAILABLE UNAVAILA BLE O UNAVAILABLE UNAVAILA BLE [place] 302/[id number] SP [id number] [place] 306/806 [id number] [id number] Results ID Date Data Source [id number] 03/06/2020 04:00:00 AM EDT NETSMART ([facility]) Name Value Range Interpretation Code Description Data Penny rce(s) Supporting Document(s) UREA NITROGEN (BUN) 24.0 mg/dL NETSMART ([facility]) eGFR NON-AFR. MALAWIAN 102.0 mL/min/1.73m2 NETSMART ([facility]) Creatinine [Interpretation] in Urine 0.99 mg/dL [facility]SM[facility] ([facility]) Glucose [Mass/volume] in Urine collected for unspecified duratio n 95.0 mg/dL [facility] ([facility]) eGFR 118.0 mL/min/1.73m2 [facility] Potassium [Mass/volume] in Blood 5.0 mmol/L [facility] ([facility]) Sodium [Moles/volume] in Serum, Plasma or Blood 143.0 mmol/L [facility] ([facility]) BUN/CREATININE RATIO NOT APPLICABLE [facility] ([facility]) PROTEIN, TOTAL 7.1 g/dL [facility]) Chloride [Moles/volume] in Serum, Plasma or Blood 104.0 mmol/L [facility] ([facility]) Carbon dioxide [VFr/PPres] in Gas delivery system 28.0 mmol/L [facility] ([facility]) Calcium [Moles/volume] in Urine collected for unspecified durati on 10.0 mg/dL [facility] ([facility]) ALBUMIN/GLOBULIN RATIO 2.0 (calc) [facility] ([facility]) Microalbumin [Mass/time] in Urine collected for unspecified dura tion 4.7 g/dL [facility] ([facility]) Globulin [Mass/time] in 24 hour Urine 2.4 g/dL (calc) [facility] ([facility]) ALT 34.0 U/L [facility] ([facility] ) Alkaline phosphatase [Enzymatic activity/volume] in Se rum, Plasma or Blood 61.0 U/L [facility] ([facility]) AST 18.0 U/L [facility] ([facility] ) BILIRUBIN, TOTAL 0.3 mg/dL [facility] ([facility]) RED BLOOD CELL COUNT 5.09 Million/uL NET SMART ([facility]) Hemoglobin [Mass/volume] in Mixed venous blood by Oximetry 15.7 g/dL [facility] ([facility]) Hematocrit [Pure volume fraction] of Blood by Automated count 45.5 % [facility] ([facility]) Structure of plantar digital artery (body structure) 10.0 Thousand/uL [facility]) RDW 12.5 % [facility] ) MCH 30.8 pg [facility] ) MCHC 34.5 g/dL [facility] ([facility] [...] [facility] ([facility]) ABSOLUTE BLASTS DNR [facility] ([facility]) Myelocytes [#] in Body fluid [...] fluid by Manual count 1.9 % [facility] ([facility]) REACTIVE LYMPHOCYTES DNR [facility]SM[facility] ([facility]) NUCLEATED RBC DNR [facility] ([facility]) Basophils [#] in Body fluid by Manual count 0.4 % [facility] ([facility]) Blasts [#] in Body fluid by Manual count DNR [facility] ([facility]) COMMENT(S) DNR [facility] ([facility]) RPR (DX) W/REFL TITER AND CONFIRMATORY TESTING NON-REACTIVE NETSMART ([facility]) ID Date Data Source [id number] 03/06/2020 04:00:00 AM EDT [facility] ([facility]) Name Value Range Interpretation Code [...] by Creatinine-based formula (MDRD) 118.0 mL/min/1.73m2 NETSMART ([facility]) Chloride [Moles/volume] in Serum [...] Blood by Automated count 26.7 % [facility] ([facility]) Monocytes/100 leukocytes in Blood by Automated [...] [facility] ([facility]) ID Date Data Source [id number] 03/08/2020 10:18:00 AM EDT [facility] Received: 03/08/2020 at 02:27:00 QPT : [facility] [address], [address] [place] [address], [phone], Jj Verma MD Received: 03/08/2020 at 02:27:00 QPT : [facility], [address], [address] [place] [address], [phone], Jj Verma MD Received: 03/08/2020 at 02:27:00 QPT : [facility], [address], [address] [place] [address], [phone], Jj Verma MD Name Value Range Interpretation [...] [facility] ID Date Data Source [id number] 03/08/2020 10:18:00 AM EDT [facility] Received: 03/08/2020 at 02:27:00 QPT : [facility], [address] [place] [address], [phone], jJ Verma MD Received: 03/08/2020 at 02:27:00 QPT : [facility], [address] [place] [address], [phone], Jj Verma MD Received: 03/08/2020 at 02:27:00 QPT : [facility], [address] [place] [address], [phone], Jj Verma MD Name Value Range Interpretation [...] volume [Entitic volume] in Blood by KelDeena 9.6 fL 7.5-12.5 Normal (applies to non-numeric results) [facility] Neutrophils [#/volume] in Blood by Automated count 6240 cells/uL [id number] Normal (applies to non-numeric results) [facility] [...] results) [facility] ID Date Data Source [id number] 03/08/2020 10:18:00 AM EDT [facility] Received: 03/08/2020 at 02:27:00 QPT : [facility], [address], [address] [place], [address], Jj Verma MD Received: 03/08/2020 at 02:27:00 QPT : [facility], [address], [address] [place], [address], Jj Verma MD Received: 03/08/2020 at 02:27:00 QPT : [facility], [address] [facility], [address] [place], [address], Jj Verma MD Name Value Range Interpretation Code Description Data Penny rce(s) Supporting Document(s) Reagin Ab [Presence] in Serum by RPR NON-REACTIVE NON-REACTIV E Normal (applies to non-numeric results) [facility] ID Date Data Source [id number] 02/21/2020 04:00:00 AM EDT NETSMART ([facility]) Name Value Range Interpretation Code Description Data Penny rce(s) Supporting Document(s) Glucose [Mass/volume] in Serum or Plasma 93.0 mg/dL [facility] ([facility]) Creatinine [Mass/volume] in Serum or Plasma 0.97 mg/dL [facility]SM[facility] ([facility]) Glomerular filtration rate/1.73 sq M pre dicted among blacks [Volume Rate/Area] in Serum or Plasma by Creatinine-based formula (MDRD) 121.0 mL/min/1.73m2 [facility]SM[facility] ([facility]) Urea nitrogen [Mass/volume] in Serum or Plasma 14.0 mg/dL [facility] ([facility]) Glomerular filtration rate/1.73 sq M.pre dicted [Volume Rate/Area] in Serum, Plasma or Blood by Creatinine-based formula (MDRD) 104.0 mL/min/1.73m2 [facility]SM[facility] ([facility]) Sodium [Moles/volume] in Serum or Plasma 140.0 mmol/L [facility]SM[facility] ([facility]) Urea nitrogen/Creatinine [Mass Ratio] in Serum or [...] Health) Appearance of Urine CLEAR [facility] ( [facility]) Specific gravity of Urine by Test strip 1.026 [facility] ([facility]) pH of Urine by Test strip 7.0 [facility]S M[facility] ([facility]) Ketones [Presence] in Urine by Test strip [...] ([facility]) Service comment DNR NETSMART ([facility]) Yeast [#/area] in Urine sediment by Microscopy [...] volume [Entitic volume] in Blood by Briceker 9.4 fL NETSMART ([facility]) Platelets [#/volume] [...] Blood by Manual count DNR [facility] ([facility]) Eosinophils/100 leukocytes in Blood by Automated count 2.8 % [facility] ([facility]) Variant lymphocytes/100 leukocytes in Blood DNR [facility] ([facility]) Basophils/100 leukocytes in Blood by Automated count 0.3 % [facility] ([facility]) Monocytes/100 leukocytes in Blood by Automated count 7.7 % [facility] ([facility]) Service comment DNR NETSMART ([facility]) Nucleated erythrocytes/100 leukocytes [Ratio] in Blood DNR [facility]SM[facility] ([facility]) Blasts/100 leukocytes in Blood by Manual count DNR [facility] ([facility]) Hepatitis C virus Ab Signal/Cutoff in Serum or Plasma by Immunoassay 0.03 [facility] ([facility]) Hepatitis C virus Ab [Presence] in Serum or Plasma by Immuno assay NON-REACTIVE [facility] ([facility]) Reagin Ab [Presence] in Serum by RPR [facility] ([facility]) ID Date Data Source [id number] 02/21/2020 04:00:00 AM EDT [facility] ([facility]) Name Value Range Interpretation Code Description Data Penny rce(s) Supporting Document(s) Glucose [Mass/volume] in Urine collected for unspecified duratio n 93.0 mg/dL [facility] ([facility]) UREA NITROGEN (BUN) 14.0 mg/dL [facility] ([facility]) eGFR NON-AFR. MALAWIAN 104.0 mL/min/1.73m2 [facility] ([facility]) Creatinine [Interpretation] in Urine 0.97 mg/dL [facility] ([facility]) eGFR 121.0 mL/min/1.73m2 [facility] ([facility]) BUN/CREATININE RATIO NOT APPLICABLE NETS MART ([facility]) Sodium [Moles/volume] in Serum, Plasma or Blood 140.0 mmol/L [facility] ([facility]) Chloride [Moles/volume] in Serum, Plasma or Blood 107.0 mmol/L [facility] ([facility]) Carbon dioxide [VFr/PPres] in Gas delivery system 20.0 mmol/L [facility] ([facility]) Potassium [Mass/volume] in Blood 4.2 mmol/L NETSMART [...] ([facility]) BILIRUBIN, TOTAL 0.4 mg/dL [facility]SM[facility] ([facility]) ALT 21.0 U/L [facility] ([facility]) Color of Peritoneal dialysis fluid YELLOW [facility]SMART ([facility]) Specific gravity of Pericardial fluid by Refractometry 1.026 [facility]SM[facility] ([facility]) Appearance of Abdomen CLEAR [facility] ([facility]) Bilirubin [Presence] in Peritoneal fluid NEGATIVE [facility] ([facility]) pH of Lower respiratory specimen 7.0 [facility]SM[facility] ([facility]) Glucose [Mass/volume] in Urine collected for unspecified duration N EGATIVE NETSMART ([facility]) Ketones [Presence] in Blood by [...] Health) RENAL EPITHELIAL CELLS DNR NETSMAR T ([facility]) Calcium oxalate crystals [Presence] in Urine sediment by Light m icroscopy DNR NETSMART ([facility]) Amorphous sediment [Presence] in Urine sediment by Light microscopy D NR NETSMART ([facility]) Triple phosphate crystals [Presence] in Urine sediment by Li ght microscopy [facility]NR [facility] URIC ACID CRYSTALS DNR NETSMART ([facility]) Crystals [#/area] in Body fluid by Light microscopy DNR [facility]) HYALINE CAST NONE SEEN NETSMART ([facility]) GRANULAR CAST DNR [facility] ([facility]) COMMENTS DNR [facility] ([facility] ) Casts [#/area] in Urine sediment by Automated count DNR NETSMART ([facility]) Yeast [#/area] in Urine by Automated count DNR NETSMART ([facility]) Structure of plantar digital artery (body structure) 8.8 Thousand/uL NETSMART ([facility]) Nurse Note DNR NETSMART ([facility]) Hemoglobin [Mass/volume] in Mixed venous blood by Oximetry 15.8 g/dL [facility] ([facility]) RED BLOOD CELL COUNT 5.0 Million/uL NETS MART ([facility]) MCV 90.0 fL [facility] ([facility] ) Hematocrit [Pure volume fraction] of Blood by Automated count 45.0 % [facility] ([facility]) MCH 31.6 pg [facility] MCHC 35.1 g/dL [facility] RDW 13.0 % [facility] PLATELET COUNT 339.0 Thousand/uL NETSMAR T ([facility]) MPV 9.4 fL [facility] ([facility] ) ABSOLUTE NEUTROPHILS 5808.0 cells/uL NET SMART ([facility]) ABSOLUTE BAND NEUTROPHILS DNR NETS MART ([facility]) ABSOLUTE LYMPHOCYTES 2042.0 cells/uL NET SMART ([facility]) ABSOLUTE MYELOCYTES DNR [facility] ( [facility]) ABSOLUTE PROMYELOCYTES DNR [facility]AR T [facility]) ABSOLUTE METAMYELOCYTES DNR NETSMA RT ([facility]) ABSOLUTE BLASTS DNR [facility] ([facility]) ABSOLUTE EOSINOPHILS 246.0 cells/uL NETS MART [...] NETSMART ([facility]) ID Date Data Source [id number] 02/23/2020 09:04:00 AM EDT [facility] Received: 02/23/2020 at 02:34:00 QPT [facility], [address] [place] [address], [phone], Jj Verma MD Received: 02/23/2020 at 02:34:00 QPT : [facility], [address] [place] [address], [phone], Jj Verma MD Received: 02/23/2020 at 02:34:00 QPT : [facility], [address] [place] [address], [phone], Jj Verma MD Received: 02/23/2020 at 02:34:00 QPT : [facility], [address], [address] [place], [phone], Jj Verma MD Received: 02/23/2020 at 02:34:00 QPT : [facility], [address], [address] [place], [address], Jj Verma MD Name Value Range Interpretation [...] [facility] ID Date Data Source [id number] 02/23/2020 09:04:00 AM EDT [facility] Received: 02/23/2020 at 02:34:00 QPT : [facility], [address] [place] [address], [phone] MD Received: 02/23/2020 at 02:34:00 QPT : [facility], [address] [place] [address], [phone], Jj Verma MD Received: 02/23/2020 at 02:34:00 QPT : [facility], [address] [place] [address], [phone] MD Received: 02/23/2020 at 02:34:00 QPT : [facility], [address] [place] [address], [phone], Jj Verma MD Received: 02/23/2020 at 02:34:00 QPT : [facility], [address], [address] [place], [address], Jj Verma MD Name Value Range Interpretation [...] [facility] ID Date Data Source [id number] 02/23/2020 09:04:00 AM EDT [facility] Received: 02/23/2020 at 02:34:00 QPT : [facility], [address], [address] [place], [address], Jj Verma MD Received: 02/23/2020 at 02:34:00 QPT : [facility], [address], [address] [place], [address], Jj Verma MD Received: 02/23/2020 at 02:34:00 QPT : [facility], [address], [address] [place], [address], Jj Verma MD Received: 02/23/2020 at 02:34:00 QPT : [facility], [address], [address] [place], [address], Jj Verma MD Received: 02/23/2020 at 02:34:00 QPT : [facility], [address], [address] [place], [address], Jj Verma MD Name Value Range Interpretation [...] volume] in Blood by Kel-Lukas 9.4 fL 7.5-12.5 Normal (applies to non-numeric results) [facility] Neutrophils [#/volume] in Blood by Automated count 5808 cells/uL [phone] Normal (applies to non-numeric results) [facility] [...] results) [facility] ID Date Data Source [id number] 02/23/2020 09:04:00 AM EDT [facility] Received: 02/23/2020 at 02:34:00 QPT : [facility], [address], [address] [place], [phone] MD Received: 02/23/2020 at 02:34:00 QPT : [facility], [address], [address] [place], [address], Jj Verma MD Received: 02/23/2020 at 02:34:00 QPT : [facility], [address], [address] [place], [phone] MD Received: 02/23/2020 at 02:34:00 QPT : [facility], [address], [address] [place], [address]Jj MD Received: 02/23/2020 at 02:34:00 QPT : [facility], [address], [address] [place], [address], Jj Verma MD Name Value Range Interpretation Code Description Data Penny rce(s) Supporting Document(s) Hepatitis C virus Ab [Presence] in Serum or Plasma by Immuno assay NON-REACTIVE NON-REACTIVE Normal (applies to non-numeric results) [facility] Hepatitis C virus Ab Signal/Cutoff in Serum or Plasma by Imm unoassay 0.03 <1.00 Normal (applies to non-numeric results) [facility] HCV antibody was non-reactive. There is no laboratoryevidence of HCV infection.In most cases, no further action is required. However,if recent HCV exposure is suspected, a test for HCV RNA(test code 90219) is suggested.For additional information please refer tohttp://education.[employer]/faq/ZFV36t5(This link is being provided for informational/educational purposes only.) ID Date Data Source [id number] 02/23/2020 09:04:00 AM EDT [employer] [facility] Received: 02/23/2020 at 02:34:00 QPT : [facility], [address], [address] [place], [phone] MD Received: 02/23/2020 at 02:34:00 QPT : [facility], [address], [address] [place], [address], Jj Verma MD Received: 02/23/2020 at 02:34:00 QPT : [facility], [address], [address] [place], [address], Jj Verma MD Received: 02/23/2020 at 02:34:00 QPT : [facility], [address], [address] [place], [address], Jj Verma MD Received: 02/23/2020 at 02:34:00 QPT : [facility], [address], [address] [place], [address], Jj Verma MD Name Value Range Interpretation Code Description Data Penny rce(s) Supporting Document(s) Reagin Ab [Presence] in Serum by RPR NON-REACTIVE NON-REACTIV E Normal (applies to non-numeric results) [facility] Procedure Social History Code Duration Value Status Description Data Source(s ) Smoking 02/21/2020 12:00:00 PM EDT Heavy cigarette smoker (fin ding) completed Heavy Tobacco Smoker NETSM[facility] ([facility]) Vital Signs ID Date Data Source UNK [...] rate 73.0 /MIN 73.0 /MIN [facility] ([facility]) Body temperature [...] pressure 132.0 MM[HG] 132.0 MM[H G] [facility] ([facility]) Oxygen saturation in Arterial blood by [...] (BMI) [Ratio] 28.7 kg/m2 28.7 k g/m2 [facility] ([facility], [facility]) Body height 72 [in_i] 72 [in_i] [facility] ([facility], [facility]) 6'0" Body weight 212.00 [lb_av] 212.00 [lb_av] MEDEN T ([facility], [facility]) Body temperature 97.8 [degF] 97.8 [degF] [facility] ([facility], [facility]) Oxygen saturation in Arterial blood by Pulse oximetry 99 % 99 % [facility] ([facility], [facility]) Respiratory rate 16 /min 16 /min [facility] ( [facility], [facility]) Heart rate 86 /min 86 /min [facility] ([facility], [facility]) Diastolic blood pressure 84 mm[Hg] 84 mm[Hg] [facility] ([facility], [facility]) Systolic blood pressure 124 mm[Hg] 124 mm[Hg] [facility] ([facility], [facility])
[2021-01-01 15:46] VITALS: BP 115/72
== END 2021-01-01 15:55 | disposition home or self-care (01) ==
LOC: M ED 12:17
DX: N45.1 Epididymitis (principal); F17.200 Nicotine dependence, unspecified, uncomplicated; Z88.0 Allergy status to penicillin
CPT/HCPCS: 76857; 76870; 81001; 87086; 87491; 87591; 93976; 96372; 99283; J0696

== ENCOUNTER → 2021-01-04 | Outpatient (CLI) | payer OTHER ==
[~2021-01-04] MED LIST: DOXY100C37 PO
== END ==
LOC: M OUTALCOH 07:38
PROVIDERS: ATTEND Psychiatry & Neurology Psychiatry
DX: F10.20 Alcohol dependence, uncomplicated (principal); F14.20 Cocaine dependence, uncomplicated; F17.200 Nicotine dependence, unspecified, uncomplicated

== ENCOUNTER 2021-01-11 14:00 | Outpatient (RCR) | payer OTHER | END 2021-01-13 | LOC: M OUTALCOH 14:00 | PROVIDERS: ATTEND Psychiatry & Neurology Psychiatry | DX: F10.20 Alcohol dependence, uncomplicated (principal); F14.20 Cocaine dependence, uncomplicated; F17.200 Nicotine dependence, unspecified, uncomplicated ==

== ENCOUNTER 2021-02-12 09:00 | Outpatient (RCR) | payer OTHER | END 2021-02-13 | LOC: M OUTALCOH 09:00 | PROVIDERS: ATTEND Psychiatry & Neurology Psychiatry | DX: F10.20 Alcohol dependence, uncomplicated (principal); F14.20 Cocaine dependence, uncomplicated; F17.200 Nicotine dependence, unspecified, uncomplicated ==

== ENCOUNTER 2021-02-26 15:35 | Outpatient (RCR) | payer OTHER | END 2021-03-15 | LOC: M OUTALCOH 15:35 | PROVIDERS: ATTEND Psychiatry & Neurology Psychiatry | DX: F10.20 Alcohol dependence, uncomplicated (principal); F14.20 Cocaine dependence, uncomplicated; F17.200 Nicotine dependence, unspecified, uncomplicated ==

== ENCOUNTER 2021-03-21 10:39 | Emergency (ER) | payer OTHER ==
[~2021-03-21] VITALS: Ht 182.9 cm; Wt 100.0 kg
--- NOTE | 2021-03-21 15:29 | REP ---
INDICATION: pain in heel. COMPARISON: Comparison CT study of the chest February 01 2020 TECHNIQUE: Two views.. FINDINGS: The lungs are well inflated and free of infiltrate. The pleural angles are sharp. The heart size is normal. Pulmonary vasculature is not increased. No significant bony abnormality is seen. IMPRESSION: Negative chest x-ray. <Electronically signed by Jose Ledbetter > 03/21/21 [id number]
--- NOTE | 2021-03-21 15:31 | REP ---
INDICATION: pain in heel. COMPARISON: None. TECHNIQUE: Four views of the right foot are provided. FINDINGS: Four views of the right foot demonstrate normal bones, joints, and soft tissues. No fracture or subluxation is seen. No opaque foreign body noted. Calcaneus is radiographically unremarkable. No erosive changes. IMPRESSION: Negative right foot series. <Electronically signed by Jose Ledbetter > 03/21/21 [id number]
[2021-03-21 16:03] LABS: BASO % 0.3 % (0.0-1.0); EOS # 0.2 10^3/uL (0.0-0.5); EOS % 2.2 % (0.0-3.0); HEMATOCRIT 46.2 % (42.0-52.0); HEMOGLOBIN 15.7 g/dl (13.5-17.5); LYMPH # 2.7 10^3/uL (1.5-5.0); LYMPH % 27.5 % (24.0-44.0); MEAN CORPUSCULAR HEMOGLOBIN 30.2 pg (27.0-33.0); MEAN CORPUSCULAR VOLUME 88.8 fl (80.0-96.0); MONO # 0.8 10^3/uL (0.0-0.8); MONO % 7.6 % (2.0-8.0); NEUTROPHILS # 6.2 10^3/uL (1.5-8.5); PLATELET COUNT, AUTOMATED 317 10^3/uL (150-450)
[2021-03-21 16:37] LABS: BLOOD UREA NITROGEN 10 MG/DL (7-18); CALCIUM LEVEL 9.4 MG/DL (8.5-10.1); CARBON DIOXIDE LEVEL 27 MEQ/L (21-32); CHLORIDE LEVEL 110 MEQ/L (98-107); CK-MB VALUE MASS < 1.0 NG/ML (<3.6); CPK CREATINE PHOSPHOKINASE 139 U/L (39-308); CREATININE FOR GFR 0.87 MG/DL (0.70-1.30); GLOMERULAR FILTRATION RATE > 60.0 (>60); GLUCOSE, FASTING 84 MG/DL (70-100); MB/CK RELATIVE INDEX 0.72 (< OR =4); POTASSIUM SERUM 4.3 MEQ/L (3.5-5.1); SODIUM LEVEL 140 MEQ/L (136-145); TROPONIN I < 0.02 NG/ML (< 0.10)
[2021-03-21 17:37] VITALS: BP 145/97
--- NOTE | 2021-03-22 18:36 | ECGEPIP ---
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
== END 2021-03-21 17:38 | disposition home or self-care (01) ==
LOC: M ED 10:39
DX: S43.491A Other sprain of right shoulder joint, initial encounter (principal); X58.XXXA Exposure to other specified factors, initial encounter; Y92.89 Other specified places as the place of occurrence of the external cause; R07.89 Other chest pain; M79.671 Pain in right foot; Z88.0 Allergy status to penicillin; F15.11 Other stimulant abuse, in remission; F17.210 Nicotine dependence, cigarettes, uncomplicated

== ENCOUNTER 2025-09-23 08:33 | Emergency (ER) | payer OTHER ==
[~2025-09-23] VITALS: Ht 182.9 cm; Wt 99.3 kg
[~2025-09-23 08:33] MED LIST changes: +DOXY-441 PO; -DOXY100C37 PO
[2025-09-23 08:37] VITALS: TEMP 98.1
[2025-09-23] MEDS ORDERED: BENA25CA4 PO (08:42)
[2025-09-23 11:12] VITALS: BP 132/64; O2SAT 99
[2025-09-23] MEDS ORDERED: HYDR25OIN TOP (11:38)
== END 2025-09-23 11:49 | disposition home or self-care (01) ==
LOC: M ED 08:33
DX: L23.7 Allergic contact dermatitis due to plants, except food (principal); Z88.0 Allergy status to penicillin